=== PATIENT | female | born 1985 | race Two or more races ===

== ENCOUNTER 2017-02-13 21:27 | Emergency (ER) | payer SELFPAY ==
[~2017-02-13] VITALS: Ht 165.1 cm; Wt 79.4 kg
[2017-02-13] MEDS ORDERED: VITAFOL-OB+DHA1 EACH PO (21:43)
[2017-02-13] MEDS ORDERED: Ketorolac 30mg Inj IV ONE (21:45)
--- NOTE | 2017-02-13 22:00 | Emergency Room Report ---
History of Present Illness General Chief Complaint: Vaginal Source: Patient Present Illness [facility] The patient presents with vaginal bleeding. She passed tissue just now. She started bleeding on Tuesday. She is 10 weeks IUP. The bleeding and cramps got worse this evening. She passed pedro bright red blood before passing tissue in the ED. She denies any fevers, chills, nausea, vomiting, diarrhea. She has no dysuria. No dizziness or dyspnea. No headache. She states her blood type is O+. Allergies: Coded Allergies: No Known Allergies (Unverified , 02/13/17) Patient History Past Medical History: see triage record Social History Narrative with daughter Last Menstrual Period: December 03, 2016 Now: Yes : 2 Para: 1 Nursing Documentation-PMH Hx Asthma: Yes - childhood asthma Review of Systems All Other Systems: negative except mentioned in HPI Physical Exam Vital Signs Date Time Temp Pulse Resp B/P Pulse Ox O2 Delivery O2 Flow Rate FiO2 02/13/17 21:36 98.1 74 21 114/78 97 Room Air Sp02 EP Interpretation: reviewed, normal General Appearance: well appearing, no apparent distress, GCS 15 Head: normocephalic Eyes: bilateral eye PERRL, bilateral eye normal inspection ENT: moist mucus membranes Neck: supple Respiratory: lungs clear, normal breath sounds Cardiovascular #1: regular rate, rhythm Cardiovascular #2: 2+ radial (R) Gastrointestinal: normal inspection, normal bowel sounds, non tender, no mass, non-distended Genitourinary: deferred - for ultrasound - reported no significant bleeding Musculoskeletal: back normal, gait/station normal, normal range of motion Neurologic: alert, oriented x3, grossly normal Psychiatric: other - tearful at loss Skin: normal inspection, warm/dry Medical Decision Making Diagnostic Impression: Primary Impression: Miscarriage Additional Impression: Constipation Qualified Codes: K59.00 - Constipation, unspecified ER Course The patient presents with vaginal bleeding. She appears to pass tissue here. We have to exclude retained products at this time. Ultrasound is ordered as well as labs. She'll be treated for pain. POC observed, appears complete SAb. Ultrasound with what looks like blood, no IUP. H/H acceptable and Rh O+. Patient improved with treatment. Antibiotics and analgesia ordered. Warned of constipation associated with Naoma. Stable for outpatient observation and treatment. Laboratory Tests Test 02/13/17 22:06 02/13/17 23:30 White Blood Count 13.9 K/UL (4.8-10.8) H Red Blood Count 3.95 M/UL (4.20-5.40) L Hemoglobin 12.8 G/DL (12.0-16.0) Hematocrit 37.1 % (37.0-47.0) Mean Corpuscular Volume 94 FL (80-99) Mean Corpuscular Hemoglobin 32.4 PG (27.0-31.0) H Mean Corpuscular Hemoglobin Concent 34.6 G/DL (32.0-36.0) Red Cell Distribution Width 11.0 % (11.6-14.8) L Platelet Count 293 K/UL (150-450) Mean Platelet Volume 9.2 FL (6.5-10.1) Neutrophils (%) (Auto) 70.8 % (45.0-75.0) Lymphocytes (%) (Auto) 19.7 % (20.0-45.0) L Monocytes (%) (Auto) 6.1 % (1.0-10.0) Eosinophils (%) (Auto) 2.5 % (0.0-3.0) Basophils (%) (Auto) 0.9 % (0.0-2.0) Prothrombin Time 9.7 SEC (9.30-11.50) Prothrombin Time INR 0.9 (0.9-1.1) PTT 33 SEC (23-33) Sodium Level 138 mEQ/L (135-145) Potassium Level 3.8 mEQ/L (3.4-4.9) Chloride Level 100 mEQ/L (98-107) Carbon Dioxide Level 20 mEQ/L (20-30) Anion Gap 18 (5-15) H Blood Urea Nitrogen 8 mg/dL (7-23) Creatinine 0.6 mg/dL (0.5-0.9) Estimate Glomerular Filtration Rate > 60 mL/min (>60) Glucose Level 107 mg/dL (74-106) H Calcium Level 9.1 mg/dL (8.6-10.2) Total Bilirubin 0.3 mg/dL (0.0-1.2) Aspartate Amino Transferase (AST) 14 U/L (5-40) Alanine Aminotransferase (ALT) 13 U/L (3-33) Alkaline Phosphatase 56 U/L (35-104) Total Protein 7.4 g/dL (6.6-8.7) Albumin 4.3 g/dL (3.5-5.2) Globulin 3.1 g/dL Albumin/Globulin Ratio 1.3 (1.0-2.7) Lipase 20 U/L (< 60) Urine Color Red Urine Appearance Cloudy Urine pH 6 (4.5-8.0) Urine Specific [place] 1.005 (1.005-1.035) Urine Protein 2+ (NEGATIVE) H Urine Glucose (UA) Negative (NEGATIVE) Urine Ketones Negative (NEGATIVE) Urine Occult Blood 5+ (NEGATIVE) H Urine Nitrite Negative (NEGATIVE) Urine Bilirubin Negative (NEGATIVE) Urine Urobilinogen Normal MG/DL (0.0-1.0) Urine Leukocyte Esterase 1+ (NEGATIVE) H Urine RBC Tntc /HPF (0 - 2) H Urine WBC 2-4 /HPF (0 - 2) Urine Squamous Epithelial Cells Few /LPF (NONE/OCC) Urine Bacteria Few /HPF (NONE) CT/MRI/US Diagnostic Results CT/MRI/US Diagnostic Results : Imaging Test Ordered: ultrasound - pelvic Impression No IUP, material in lower uterus Last Vital Signs Date Time Temp Pulse Resp B/P Pulse Ox O2 Delivery O2 Flow Rate FiO2 02/14/17 00:25 109/71 02/14/17 00:24 69 18 02/13/17 23:45 98.1 02/13/17 21:36 97 Room Air Status: improved Disposition: HOME, SELF-CARE Condition: Improved Scripts Hydrocodone Bit/Acetaminophen 5-325* (NORCO 5-325*) 1 Each Tablet 1 TAB ORAL Q6H Y for For Pain, #10 TAB 0 Refills Prov: Pal Starkey M.D. 02/14/17 Ibuprofen* (MOTRIN*) 600 Mg Tablet 600 MG ORAL Q6H Y for For Pain, #20 TAB Prov: Pal Starkey M.D. 02/14/17 Doxycycline Hyclate* (VIBRAMYCIN*) 100 Mg Capsule 100 MG ORAL EVERY 12 HOURS, #14 CAP 0 Refills Prov: Pla Starkey M.D. 02/14/17 Pal Starkey M.D. Feb 13, 2017 22:00
[2017-02-13 22:19] LABS: BASOPHILS % (AUTO) 0.9 % (0.0-2.0); EOSINOPHILS % (AUTO) 2.5 % (0.0-3.0); LYMPHOCYTES % (AUTO) 19.7 % (20.0-45.0); MEAN CORPUSCULAR HEMOGLOBIN 32.4 PG (27.0-31.0); MEAN CORPUSCULAR HGB CONC 34.6 G/DL (32.0-36.0); MEAN CORPUSCULAR VOLUME 94 FL (80-99); MEAN PLATELET VOLUME 9.2 FL (6.5-10.1); MONOCYTES % (AUTO) 6.1 % (1.0-10.0); NEUTROPHILS % (AUTO) 70.8 % (45.0-75.0); PLATELET COUNT 293 K/UL (150-450); RED BLOOD COUNT 3.95 M/UL (4.20-5.40); WHITE BLOOD COUNT 13.9 K/UL (4.8-10.8)
[2017-02-13 22:32] LABS: INR 0.9 (0.9-1.1); PROTHROMBIN TIME 9.7 SEC (9.30-11.50)
[2017-02-13 22:38] LABS: ALANINE AMINOTRANSFERASE 13 U/L (3-33); ALBUMIN/GLOBULIN RATIO 1.3 (1.0-2.7); ANION GAP 18 (5-15); ASPARTATE AMINO TRANSFERASE 14 U/L (5-40); CALCIUM 9.1 mg/dL (8.6-10.2); CARBON DIOXIDE 20 mEQ/L (20-30); CHLORIDE 100 mEQ/L (98-107); CREATININE 0.6 mg/dL (0.5-0.9); GLOMERULAR FILTRATION RATE > 60 mL/min (>60); HEMOLYSIS 3; LIPASE 20 U/L (< 60); POTASSIUM 3.8 mEQ/L (3.4-4.9); SODIUM 138 mEQ/L (135-145); TOTAL PROTEIN 7.4 g/dL (6.6-8.7)
[2017-02-13 23:43] LABS: APPEARANCE,URINE CLOUDY; KETONES,URINE NEGATIVE (NEGATIVE); LEUKOCYTE ESTERASE ,URINE 1+ (NEGATIVE); NITRITE,URINE NEGATIVE (NEGATIVE); PH,URINE 6 (4.5-8.0); PROTEIN,URINE 2+ (NEGATIVE); UROBILINOGEN,URINE NORMAL MG/DL (0.0-1.0)
[2017-02-13 23:56] LABS: BACTERIA,URINE FEW /HPF; RBC,URINE TNTC /HPF (0 - 2); SQUAMOUS EPITHELIAL CELL,UR FEW /LPF (NONE/OCC)
[2017-02-14] MEDS ORDERED: VIBRAMYCIN100 MG ORAL (00:06)
[2017-02-14] MEDS ORDERED: IBUPROFEN600 MG ORAL (00:06)
[2017-02-14] MEDS ORDERED: NORCO 5-325 TA1 EACH ORAL (00:06)
[2017-02-14 00:24] VITALS: BP 109/71
[2017-02-14 00:25] VITALS: BP 109/71
--- NOTE | 2017-02-14 09:30 | Diagnostic Imaging Report ---
Indications: Vaginal bleeding, LMP 12/03/2016, positive urine test on January 01, 2017 per patient Technique: Transabdominal and transvaginal real-time grayscale and duplex Doppler imaging of the pelvis was performed. Findings: Comparison: None Uterus measures 9.6 x 7.6 x 5.8cm. It demonstrates normal contour and myometrial echotexture without focal abnormality. The endometrial complex measures 13 mm in diameter. It is unremarkable in appearance without obvious gestational sac or focal abnormality. Minimal fluid in endocervical canal.. No free fluid is present in the cul-de-sac. Right ovary measures 3.8 x 2.9 x 2.5 cm. Contains 2 cm complex cystic mass.. Duplex Doppler imaging demonstrates normal blood flow. No extra-ovarian abnormality is seen. Left ovary measures 3 x 3.3 x 2.2 cm. It is unremarkable in appearance. Duplex Doppler imaging demonstrates normal blood flow. No extra-ovarian abnormality is seen. IMPRESSION: No evidence of intrauterine or ectopic . Neither diagnosis excludable. No evidence of recurrent products of conception. Incomplete or missed not excludable. Recommend serial serum quantitative beta hCG levels. Minimal fluid in endocervical canal likely relates to vaginal bleeding Right ovarian mass most compatible with hemorrhagic physiologic cyst
== END 2017-02-14 00:26 | disposition home or self-care (01) ==
LOC: EMR 21:50
DX: O03.9 Complete or unspecified spontaneous abortion without complication (principal); O26.891 Other specified pregnancy related conditions, first trimester; Z3A.10 10 weeks gestation of pregnancy; K59.00 Constipation, unspecified
CPT/HCPCS: 36415; 76830; 76856; 80053; 81003; 83690; 85025; 85610; 85730; 86900; 86901; 96374; 96375; 99284; J1885; J2405

== ENCOUNTER 2019-10-28 22:37 | Emergency (ER) | payer BC ==
[~2019-10-28] VITALS: Ht 165.1 cm; Wt 72.6 kg
[~2019-10-28 22:37] MED LIST: IBUPROFEN600 MG ORAL; NORCO 5-325 TA1 EACH ORAL; VIBRAMYCIN100 MG ORAL; VITAFOL-OB+DHA1 EACH PO
[2019-10-28 22:55] VITALS: BP 125/88
--- NOTE | 2019-10-28 22:55 | NUR ---
Note undone in EDM - 10/28/19 at 2314 by [facility] ED Nurse Note: Patient walked in from home d/t right earache worsening in the last few days, per pt ear pain started 6 days ago, denies drainage, and was accompanied by nasal congestion and productive cough. pain rated 4/10 aching. Patient aao x 4 and ambulatory with steady gait. Patient stable upon assessment.
--- NOTE | 2019-10-28 22:58 | NUR ---
ED Nurse Note: Patient walked in from home d/t right ear pain, started 6 days ago and was intermittent and now worsening 4/10 aching. Patient aao x 4 and ambulatory with steady gait. Patient reported nasal congestion and productive cough. Patient reports taking one dose of Shohola at approximately 2100, ineffective for pain. Patient stable upon assessment.
--- NOTE | 2019-10-28 23:19 | NUR ---
ED Nurse Note: ERMD at bedside.
[2019-10-28] MEDS ORDERED: AMOXICILLIN500 MG ORAL (23:25)
[2019-10-28] MEDS ORDERED: IBUPROFEN600 MG ORAL (23:25)
[2019-10-28 23:31] VITALS: BP 128/85
--- NOTE | 2019-10-28 23:31 | NUR ---
ER DISCHARGE NOTE: Patient is cleared to be discharged per ERMD, pt is aox4, on room air, with stable vital signs. pt was given dc and prescription instructions, pt was able to verbalize understanding, pt id band removed. pt is able to ambulate with steady gait. pt took all belongings. pt stable upon discharge.
--- NOTE | 2019-10-28 23:32 | Emergency Room Report ---
History of Present Illness General Chief Complaint: Earache Source: Patient Present Illness HPI Patient presents with complaints of right ear pain ongoing for the past 2 days Reports that she had URI symptoms with runny nose and mild sore throat and now the pain has worsened Denies any chest pain or shortness of breath denies any cough denies any vomiting or diarrhea denies any fever COVID-19 risk:Travel to affect: No Allergies: Coded Allergies: No Known Allergies (Unverified , 02/13/17) Patient History Past Medical History: see triage record Last Menstrual Period: 10/2019 Reviewed Nursing Documentation: PMH: Agreed; PSxH: Agreed Nursing Documentation-PMH Hx Asthma: Yes - childhood asthma Review of Systems All Other Systems: negative except mentioned in HPI Physical Exam Vital Signs Date Time Temp Pulse Resp B/P (MAP) Pulse Ox O2 Delivery O2 Flow Rate FiO2 10/28/19 22:43 97.9 83 16 123/85 (98) 95 Room Air Sp02 EP Interpretation: reviewed, normal General Appearance: well appearing, no apparent distress Head: normocephalic, atraumatic Eyes: bilateral eye PERRL, bilateral eye EOMI ENT: normal pharynx, uvula midline, other - Right tympanic membrane is erythematous and mildly bulging canal otherwise clear Neck: supple Respiratory: lungs clear, no respiratory distress, no retraction Cardiovascular #1: regular rate, rhythm Gastrointestinal: non tender, soft Genitourinary: no CVA tenderness Musculoskeletal: normal inspection Neurologic: alert, oriented Psychiatric: normal inspection Skin: no rash Lymphatic: normal inspection Medical Decision Making Diagnostic Impression: Primary Impression: otitis media ER Course Given the patient's history and presentation findings are consistent with otitis media Patient is placed on antibiotics And requires close outpatient follow-up Last Vital Signs Date Time Temp Pulse Resp B/P (MAP) Pulse Ox O2 Delivery O2 Flow Rate FiO2 10/28/19 22:55 97.9 78 18 125/88 96 Room Air Status: improved Disposition: HOME, SELF-CARE Condition: Stable Scripts Ibuprofen* (MOTRIN*) 600 Mg Tablet 600 MG ORAL Q8H PRN for For Pain, #20 TAB 0 Refills Prov: Norbert Yip DO 10/28/19 Amoxicillin* (AMOXIL*) 500 Mg Capsule 500 MG ORAL THREE TIMES A DAY, #21 CAP Prov: Norbert Yip DO 10/28/19 Referrals: NON PHYSICIAN (PCP) [facility]. [facility] Patient Instructions: Otitis Media, Adult, [id number] Additional Instructions: Patient is provided with the discharge instructions notified to follow up with primary doctor in the next 2-3 days otherwise return to the er with any worsening symptoms. Please note that this report is being documented using DRAGON technology. This can lead to erroneous entry secondary to incorrect interpretation by the dictating instrument. Norbert Yip DO Oct 28, 2019 23:32
== END 2019-10-28 23:31 | disposition home or self-care (01) ==
LOC: EMR 23:11
DX: H66.91 Otitis media, unspecified, right ear (principal)
CPT/HCPCS: 99282